=== PATIENT | female | born 1930 | race Caucasian/White ===

== ENCOUNTER 2017-02-26 21:33 | Emergency (ER) | payer MEDICARE, MEDICAID ==
--- NOTE | 2017-02-26 21:58 | ER NURSING DOCUMENTATION ---
Nurse's Notes [facility] ([place], [place]) Name:Parul Salvador Age:86 yrs Sex:Female :1930 Arrival Date:02/26/2017 Time:21:33 Bed1 Private MD:Zeus Caraballo Diagnosis:Open Wound of Mouth Presentation: 02/26 21:40 Presenting complaint: RN from [facility]. Presenting complaint: Patient states: dental lb extraction today, site still bleeding according to nurse. Transition of care: [facility]. Notified ED Physician of Dr. Hall notified. 21:40 Acuity: JUAN C 4 lb 21:40 Method Of Arrival: Walk In lb Triage Assessment: 21:45 General: Appears in no apparent distress, Behavior is appropriate for age. Pain: Denies lb pain. Historical: - Allergies: Bupropion; Lexapro; lithium carbonate; PENICILLINS; Tramadol HCl; - Home Meds: 1. Acetaminophen Oral 2. Calcium Gluconate Oral 3. Clonidine Oral 4. Clonazepam Oral 5. aspirin 81 mg oral tab 6. Miralax Oral 7. DuoNeb Inhl 8. Maalox Oral 9. Milk of Magnesia Oral - PMHx: Hypertension; Diabetes - NIDDM; BIPOLAR DISORDER; HYPOTHYROIDISM; - PSHx: Unable to obtain; - Tetanus: < 10 years. - Ebola Screening: : Patient denies exposure to infectious person. Patient denies travel to an Ebola-affected area in the 21 days before illness onset. . - Immunization history: Flu Vaccine < 1 year. - Social history: Smoking status: Patient states was never smoker of tobacco. Patient/guardian denies using alcohol. - Code Status:: Full code. Screenin:46 Infectious Disease Risk None. Abuse screen: Denies threats or abuse. Denies injuries lb from another. Nutritional screening: No deficits noted. Assessment: 21:46 See Triage Assessment done by same RN. lb Vital Signs: 21:46 BP 164 / 100; Pulse 68; Resp 20; Temp 97; Pulse Ox 97% on 2.5 lpm NC; Pain 0/10; lb ED Course: 21:33 Patient arrived in ED. ma1 21:33 Zeus Caraballo MD is Private Physician. ma1 21:39 Nirmala Lambert is Primary Nurse. lb 21:41 Triage completed. lb 21:45 Luciano Hall MD is Attending Physician. cd 21:45 Zeus Caraballo MD is Referral Physician. cd 21:47 Valuables Remains with patient Patient has correct armband on for positive lb identification. Administered Medications: No medications were administered Outcome: 21:45 Discharge ordered by . cd 21:56 [facility] to [facility] Report called to Lucinda AMBROSE at [facility] 21:56 Condition: good 21:56 Discharge Assessment: Patient awake, alert and oriented x 3. No cognitive and/or functional deficits noted. Patient verbalized understanding of disposition instructions. 21:56 Instructed on discharge instructions, follow up and referral plans. 21:57 Patient left the ED. lb Signatures: Luciano Hall MD MD cd Bollock, Lynda lb Karen Saldana
--- NOTE | 2017-02-26 21:58 | ER PHYSICIAN DOCUMENTATION ---
Physician Documentation [facility] Name:Parul Salvador Age:86 yrs Sex:Female :1930 Arrival Date:02/26/2017 Time:21:33 Bed1 Private MD:Zeus Caraballo ED, Chris Disposition: 02/26/17 21:45 Discharged to [facility]. Impression: Open Wound of Mouth. - Condition is Good. - Discharge Instructions: wounds - POST OP WOUND CHECK, Bleeding. - Medical Reconciliation form form. - Follow up: Zeus Caraballo MD; When: 1 week; Reason: Recheck today's complaints, Continuance of care. - Problem is new. - Symptoms are resolved. - Notes: Apply teabag to sockets to stop bleeding if necessary. HPI: 02/26 21:35 This 86 yrs old Female presents to ER via Walk In with complaints of Mouth cd oozing after two tooth extractions today. 21:35 The patient presents with bleeding. The problem is located in the upper left cuspid and cd upper left first bicuspid. Onset: The symptom(s)/episode began/occurred acutely, today. Associated signs and symptoms: The patient has no apparent associated signs or symptoms. Severity of symptoms: At their worst the symptoms were very mild, in the emergency department the symptoms are unchanged. Historical: - Allergies: Bupropion; Lexapro; lithium carbonate; PENICILLINS; Tramadol HCl; - Home Meds: 1. Acetaminophen Oral 2. Calcium Gluconate Oral 3. Clonidine Oral 4. Clonazepam Oral 5. aspirin 81 mg oral tab 6. Miralax Oral 7. DuoNeb Inhl 8. Maalox Oral 9. Milk of Magnesia Oral - PMHx: Hypertension; Diabetes - NIDDM; BIPOLAR DISORDER; HYPOTHYROIDISM; - PSHx: Unable to obtain; - Tetanus: < 10 years. - Ebola Screening: : Patient denies exposure to infectious person. Patient denies travel to an Ebola-affected area in the 21 days before illness onset. . - Immunization history: Flu Vaccine < 1 year. - Social history: Smoking status: Patient states was never smoker of tobacco. Patient/guardian denies using alcohol. - Code Status:: Full code. ROS: 21:45 ENT: Positive for mild bleeding from to sockets where two teeth had been pulled today. cd No active bleeding on my inspection. 21:45 All other systems are negative. Exam: 21:45 Constitutional: The patient appears alert, awake, anxious. cd 21:45 ENT: Mouth: Oral mucosa: dry, two sockets where teeth had been pulled with dry blood. No active bleeding, Dental exam: normal, no acute changes. Vital Signs: 21:46 BP 164 / 100; Pulse 68; Resp 20; Temp 97; Pulse Ox 97% on 2.5 lpm NC; Pain 0/10; lb MDM: 21:45 Patient medically screened. cd 21:50 Data reviewed: vital signs, nurses notes, old medical records, and as a result, I will cd discharge patient. Counseling: I had a detailed discussion with the patient and/or guardian regarding: the historical points, exam findings, and any diagnostic results supporting the discharge/admit diagnosis, the need for outpatient follow up, for a recheck, for a referral to a specialist, a dentist, to return to the emergency department if symptoms worsen or persist or if there are any questions or concerns that arise at home. Response to treatment: the patient's symptoms have markedly improved after treatment, the patient's condition has returned to base line, and as a result, I will discharge patient. ED course: A wet tea bag was applied to the area.. Dispensed Medications: No medications were administered Signatures: Luciano Hall MD MD cd Bollock, Lynda lb
== END 2017-02-26 21:58 ==
LOC: ER 21:33
DX: K91.840 Postprocedural hemorrhage of a digestive system organ or structure following a digestive system procedure (principal); Z98.818 Other dental procedure status; I10 Essential (primary) hypertension; E11.9 Type 2 diabetes mellitus without complications; Z79.899 Other long term (current) drug therapy
CPT/HCPCS: 99281